=== PATIENT | female | born 1950 | race Caucasian/White ===

== ENCOUNTER 2023-11-16 17:56 | Inpatient (IN) | payer MEDICARE ==
[~2023-11-16] VITALS: Ht 162.6 cm; Wt 82.1 kg
[2023-11-16] MEDS: ANGIOMAX 250 MG VIAL IV ONE (18:11)
[2023-11-16] MEDS: IODIXANOL 320MG/ML 100ML BTL IV ONE ×2 (18:12→19:13)
[2023-11-16] MEDS: fentaNYL CITRATE 100 MCG/2 ML VL ONE (18:12)
[2023-11-16] MEDS: MIDAZOLAM HCL 2MG/2ML 2ml VIAL (1mg/ml) ONE (18:12)
[2023-11-16] MEDS: SODIUM CHL 0.9% 50 ML ONE (18:12)
[2023-11-16] MEDS: LIDOCAINE 2%HCL (LOCAL ANESTH.) INJ 20ML MDV ONE (18:13)
[2023-11-16] MEDS ORDERED: MORPHINE SULFATE INJ 2 MG/ml SYRG IV PRN (18:30)
[2023-11-16] MEDS: HEPARIN DRIP/D5W 100UNITS/ML 250 ML IV SCH (18:30)
[2023-11-16] MEDS ORDERED: NITROGLYCERIN 0.4 MG SL TAB SL PRN (18:30)
[2023-11-16] MEDS: EPTIFIBATIDE INJ (2MG/ML) 10ML VIAL IV ONE (18:51)
[2023-11-16] MEDS: niCARdipine 25 MG/10 ML VIAL IV ONE (18:52)
[2023-11-16 18:54] LABS: Basophils # (auto) 0.1 10 ^3/uL (0-0.2); Basophils % (auto) 0.6 % (0.0-2.0); Eosinophils # (auto) 0 10 ^3/uL (0-0.8); Eosinophils % (auto) 0.3 % (0.0-7.0); Hematocrit 39.4 % (36.0-46.0); Hemoglobin 12.8 g/dL (12.2-16.2); Lymphocytes # (auto) 3.1 10 ^3/uL (0.4-5.4); Lymphocytes % (auto) 24.7 % (10.0-50.0); Mean Corpuscular Hemoglobin 28.3 pg (28.0-32.0); Mean Corpuscular Hgb Conc. 32.5 g/dL (32.0-36.0); Monocytes # (auto) 1.4 10 ^3/uL (0-1.3); Monocytes % (auto) 11.3 % (0.0-12.0); Neutrophils % (auto) 63.1 % (37.0-80.0); Nucleated Red Blood Cells % 0.1 %; Red Blood Cells 4.52 10^6/uL (4.0-5.20); Red Cell Distribution Width 14.9 % (11.8-14.3); White Blood Cell 12.6 10^3/uL (4.4-10.8)
[2023-11-16] MEDS: NOREPINEPHRINE 8 MG/250ML KIT 250 ML IV ONE (18:58)
[2023-11-16 19:20] LABS: INR 1.02 (0.9-1.15); Partial Thromboplastin Time 28.1 SEC (24.5-34.5); Prothrombin Time 10.8 sec (9.3-11.8)
[2023-11-16 19:25] LABS: Alanine Aminotransferase 25 U/L (7-40); Albumin 4.3 g/dL (3.2-4.8); Alkaline Phosphatase 79 U/L (46-116); Anion Gap 11 (5-15); Aspartate Aminotransferase 90 U/L (13-40); BUN/Creatinine Ratio 10.2 (10.0-20.0); Blood Urea Nitrogen 9 mg/dL (9-23); Calcium 9.5 mg/dL (8.5-10.1); Carbon Dioxide 21 mmol/L (20-30); Chloride 101 mmol/L (98-107); Cholesterol 133 mg/dL (< 200); Glucose 123 mg/dL (74-106); HDL Cholesterol 47 mg/dL (40-59); LDL Cholesterol 66 mg/dL (< 100); Magnesium 1.8 mg/dL (1.6-2.6); Potassium 3.9 mmol/L (3.5-5.1); Sodium 133 mmol/L (136-145); Triglycerides 123 mg/dL (< 150); Triglycerides 124 mg/dL (< 150)
[2023-11-16 19:26] LABS: Bilirubin, Total 0.6 mg/dL (0.2-1.0); LDL Cholesterol 64 mg/dL (< 100); Total Protein 6.6 g/dL (5.7-8.2)
[2023-11-16 19:27] LABS: Cholesterol 131 mg/dL (< 200); HDL Cholesterol 47 mg/dL (40-59)
[2023-11-16 19:37] VITALS: BP 120/62; PULSE 74; RESP 20; O2SAT 96
[2023-11-16] MEDS: CLOPIDOGREL BISULFATE 75 MG TAB ONE (19:46)
[2023-11-16 19:52] VITALS: BP 143/77; PULSE 72; RESP 20; O2SAT 97
[2023-11-16 20:06] VITALS: BP 136/80; PULSE 71; RESP 20; O2SAT 98
[2023-11-16 20:23] VITALS: BP 141/86; PULSE 72; RESP 20; O2SAT 96
[2023-11-16] MEDS: ATORVASTATIN 20 MG TAB PO SCH (22:18)
[2023-11-16] MEDS: SODIUM CHLORIDE 0.9% 1,000 ML IV SCH (22:28)
[2023-11-17] VITALS (8 sets, daily range): BP systolic 92–118; BP diastolic 50–70; PULSE 69–114; RESP 16–20; TEMP 97.4–99.1; O2SAT 95–98
[2023-11-17 06:05] LABS: INR 1.02 (0.9-1.15); Partial Thromboplastin Time 30.7 SEC (24.5-34.5); Prothrombin Time 10.8 sec (9.3-11.8)
[2023-11-17] MEDS: ASPirin-EC 81 mg tab PO SCH (09:36)
[2023-11-17] MEDS: CLOPIDOGREL BISULFATE 75 MG TAB PO ONE (09:37)
[2023-11-17] MEDS ORDERED: ATOR-507 PO (09:41)
[2023-11-17] MEDS ORDERED: LISI10TA34 PO (09:41)
[2023-11-17] MEDS ORDERED: CITA10TA5 PO (09:41)
[2023-11-17] MEDS ORDERED: OMEP20TA PO (09:41)
[2023-11-17] MEDS ORDERED: METO25TA5 PO (09:41)
[2023-11-17] MEDS: METOPROLOL SUCCINATE XL 50 MG TAB PO SCH (09:41)
[2023-11-17] MEDS ORDERED: ASPirin 81 mg TAB PO SCH (10:00)
[2023-11-17] MEDS: ACETAMINOPHEN 325 MG TAB PO PRN (11:13)
[2023-11-17] MEDS ORDERED: ALEN70TA74 PO (16:30)
[2023-11-18] VITALS (13 sets, daily range): BP systolic 105–158; BP diastolic 55–92; PULSE 90–122; RESP 15–22; TEMP 98–99; O2SAT 91–98
[2023-11-18 07:37] LABS: Anion Gap 8 (5-15); Carbon Dioxide 23 mmol/L (20-30); Chloride 105 mmol/L (98-107); Potassium 3.4 mmol/L (3.5-5.1); Sodium 136 mmol/L (136-145)
[2023-11-18 07:38] LABS: Calcium 8.8 mg/dL (8.5-10.1)
[2023-11-18 07:43] LABS: Glucose 115 mg/dL (74-106)
[2023-11-18 07:44] LABS: BUN/Creatinine Ratio 6.8 (10.0-20.0); Blood Urea Nitrogen < 5 mg/dL (9-23)
[2023-11-18] MEDS: CLOPIDOGREL BISULFATE 75 MG TAB PO SCH (10:44)
[2023-11-18] MEDS: IODIXANOL 320MG/ML 100ML BTL IV ONE (14:55)
[2023-11-18] MEDS: LIDOCAINE 2%HCL (LOCAL ANESTH.) INJ 20ML MDV ONE (14:56)
[2023-11-18] MEDS: ANGIOMAX 250 MG VIAL IV ONE (15:00)
[2023-11-18] MEDS: VERAPAMIL 2.5MG/ML INJ 2ML VIAL IV ONE (15:00)
[2023-11-18] MEDS: HEPARIN SODIUM (PORCINE) 5000 UNITS/ML 1ML VIAL ONE (15:00)
[2023-11-18] MEDS: SODIUM CHL 0.9% 50 ML ONE (15:01)
[2023-11-18] MEDS: fentaNYL CITRATE 100 MCG/2 ML VL ONE (15:01)
[2023-11-18] MEDS: MIDAZOLAM HCL 2MG/2ML 2ml VIAL (1mg/ml) ONE (15:01)
[2023-11-19] VITALS (8 sets, daily range): BP systolic 94–140; BP diastolic 54–78; PULSE 87–102; RESP 16–19; TEMP 97.9–98.8; O2SAT 93–98
[2023-11-19 15:10] LABS: Chloride 104 mmol/L (98-107); Potassium 3.3 mmol/L (3.5-5.1); Sodium 136 mmol/L (136-145)
[2023-11-19 15:11] LABS: Anion Gap 7 (5-15); Carbon Dioxide 25 mmol/L (20-30)
[2023-11-19 15:16] LABS: BUN/Creatinine Ratio 8.6 (10.0-20.0); Blood Urea Nitrogen 6 mg/dL (9-23); Glucose 104 mg/dL (74-106)
[2023-11-19] MEDS: POTASSIUM EFFERVESENT TAB 25 MEQ PO ONE (16:07)
[2023-11-19] MEDS: POTASSIUM CHLORIDE 40 MEQ, LIDOCAINE 1% (LOCAL ANESTH.) 4 ML in SODIUM CHL 0.9% 250 ML IV ONE (17:22)
[2023-11-20 01:00] VITALS: BP 104/63; PULSE 84; RESP 18; TEMP 96.6; O2SAT 93
[2023-11-20 05:00] VITALS: BP 112/69; PULSE 87; RESP 17; TEMP 96.9; O2SAT 95
[2023-11-20 06:35] LABS: Basophils # (auto) 0.1 10 ^3/uL (0-0.2); Basophils % (auto) 0.9 % (0.0-2.0); Eosinophils # (auto) 0.1 10 ^3/uL (0-0.8); Hematocrit 29.1 % (36.0-46.0); Hemoglobin 9.7 g/dL (12.2-16.2); Lymphocytes # (auto) 1.6 10 ^3/uL (0.4-5.4); Lymphocytes % (auto) 26.3 % (10.0-50.0); Mean Corpuscular Hemoglobin 29.2 pg (28.0-32.0); Mean Corpuscular Hgb Conc. 33.2 g/dL (32.0-36.0); Mean Corpuscular Volume 87.8 fL (80.0-100.0); Monocytes # (auto) 0.8 10 ^3/uL (0-1.3); Monocytes % (auto) 13.5 % (0.0-12.0); Neutrophils # (auto) 3.6 10 ^3/uL (1.6-8.6); Neutrophils % (auto) 57.3 % (37.0-80.0); Nucleated Red Blood Cells % 0.1 %; Red Blood Cells 3.32 10^6/uL (4.0-5.20); White Blood Cell 6.2 10^3/uL (4.4-10.8)
[2023-11-20 06:54] LABS: Alanine Aminotransferase 16 U/L (7-40); Albumin 3.4 g/dL (3.2-4.8); Alkaline Phosphatase 58 U/L (46-116); Anion Gap 7 (5-15); Aspartate Aminotransferase 37 U/L (13-40); Blood Urea Nitrogen 5 mg/dL (9-23); Calcium 8.5 mg/dL (8.5-10.1); Carbon Dioxide 22 mmol/L (20-30); Chloride 108 mmol/L (98-107); Glucose 102 mg/dL (74-106); Magnesium 1.8 mg/dL (1.6-2.6); Potassium 3.8 mmol/L (3.5-5.1); Sodium 137 mmol/L (136-145)
[2023-11-20 06:55] LABS: Bilirubin, Total 0.4 mg/dL (0.2-1.0); Total Protein 5.5 g/dL (5.7-8.2)
[2023-11-20 08:00] VITALS: PULSE 94; PULSE 99; RESP 18; O2SAT 94
[2023-11-20] MEDS ORDERED: ASPI-543 PO (09:23)
[2023-11-20] MEDS ORDERED: CLOP75TA70 PO (09:23)
[2023-11-20] MEDS ORDERED: METO-289 PO (09:23)
[2023-11-20 11:29] VITALS: BP 129/77; PULSE 89; RESP 17; TEMP 97.7; O2SAT 97
[2023-11-20 11:40] VITALS: BP 123/73; PULSE 88; TEMP 36.5
== END 2023-11-20 12:10 | disposition home or self-care (01) | DRG 321 ==
LOC: ER 17:56 → EDBD 17:56 → TELE 18:31 → TELE-WESTW 20:22
PROVIDERS: ADMIT Internal Medicine Geriatric Medicine; ATTEND Internal Medicine
PROC: 027034Z Dilation of Coronary Artery, One Artery with Drug-eluting Intraluminal Device, Percutaneous Approach (ICD-10-PCS; principal; 2023-11-16)
PROC: 02C03ZZ Extirpation of Matter from Coronary Artery, One Artery, Percutaneous Approach (ICD-10-PCS; 2023-11-16)
PROC: B240ZZ3 Ultrasonography of Single Coronary Artery, Intravascular (ICD-10-PCS; 2023-11-16)
PROC: 4A023N7 Measurement of Cardiac Sampling and Pressure, Left Heart, Percutaneous Approach (ICD-10-PCS; 2023-11-16)
PROC: B211YZZ Fluoroscopy of Multiple Coronary Arteries using Other Contrast (ICD-10-PCS; 2023-11-16)
PROC: B215YZZ Fluoroscopy of Left Heart using Other Contrast (ICD-10-PCS; 2023-11-16)
PROC: 027034Z Dilation of Coronary Artery, One Artery with Drug-eluting Intraluminal Device, Percutaneous Approach (ICD-10-PCS; 2023-11-18)
DX: I21.19 ST elevation (STEMI) myocardial infarction involving other coronary artery of inferior wall (principal); N17.0 Acute kidney failure with tubular necrosis; T82.855A Stenosis of coronary artery stent, initial encounter; I50.32 Chronic diastolic (congestive) heart failure; E78.5 Hyperlipidemia, unspecified; I25.10 Atherosclerotic heart disease of native coronary artery without angina pectoris; I11.0 Hypertensive heart disease with heart failure; E87.6 Hypokalemia; Z79.82 Long term (current) use of aspirin; Y84.8 Other medical procedures as the cause of abnormal reaction of the patient, or of later complication, without mention of misadventure at the time of the procedure; Y92.89 Other specified places as the place of occurrence of the external cause
CPT/HCPCS: 36415; 71045; 80048; 80053; 80061; 83735; 84443; 84484; 85025; 85610; 85730; 86850; 86900; 86901; 92941; 92973; 93005; 93306; 93458; 99152; 99291; C1887; G0378; J2001; J2250; Q9967